=== PATIENT | male | born 1995 | race Hispanic/Latino ===

== ENCOUNTER → 2019-04-25 | Outpatient (CLI) | payer OTHER ==
--- NOTE | 2019-04-25 19:12 | REP ---
CHEST, TWO VIEWS: There is no evidence of acute infiltrate. No pleural effusion is seen. The heart is normal in size. The mediastinal silhouette is unremarkable. The visualized osseous structures are intact. IMPRESSION: No acute pulmonary disease. Electronically Signed by Andrea Ramos MD 04/26/2019 10:28 A
== END ==
LOC: M RAD 15:26
PROVIDERS: ATTEND Nurse Practitioner Family
DX: R06.00 Dyspnea, unspecified (principal)

== ENCOUNTER → 2019-05-10 | Outpatient (CLI) | payer OTHER ==
[~2019-05-10] MED LIST: METHACHOLINE KIT (J7674) INH ONE
--- NOTE | 2019-05-10 11:40 | PFTRPT ---
Height: 67.00 Inches Weight: 190.00 Lbs BSA: 1.98 Diagnosis: R05 DATE OF PROCEDURE: 05/10/2019 ORDERED BY: Evangelina Ramirez INTERPRETATION: Study of excellent technical quality. Under protocol, methacholine was administered. At a dose of 2.5 mg (13.875 CDUs), a 22%% decline in the FEV1 was noted. PC of 1.81 is significant. Flow rates did return to baseline post bronchodilator administration. IMPRESSION: Positive methacholine challenge study. MTDD
== END ==
LOC: M CARPUL 10:42
PROVIDERS: ATTEND Nurse Practitioner Family
DX: R05 Cough (principal)
CPT/HCPCS: 94070; J7674

== ENCOUNTER 2019-08-17 11:44 | Emergency (ER) | payer OTHER ==
[~2019-08-17] VITALS: Ht 172.7 cm; Wt 87.4 kg
[2019-08-17 11:44] VITALS: BP 145/67
[2019-08-17] MEDS ORDERED: dexameTHASONE 20MG/5ML VIAL (J1100 PER 1MG) IV ONE (12:45)
[2019-08-17] MEDS ORDERED: AMPICILLIN SOD/SULBACTAM SOD 3 GM in D5W MINI-BAG PLUS 100 ML IV ONE (12:45)
[2019-08-17 13:02] LABS: BASO # 0.1 10^3/uL (0.0-0.2); BASO % 0.4 % (0.0-1.0); HEMATOCRIT 44.8 % (42.0-52.0); HEMOGLOBIN 15.3 g/dl (13.5-17.5); LYMPH # 1.1 10^3/uL (1.5-5.0); LYMPH % 5.1 % (24.0-44.0); MEAN CORPUSCULAR HEMOGLOBIN 29.4 pg (27.0-33.0); MEAN CORPUSCULAR HGB CONC 34.2 g/dl (32.0-36.5); MONO # 1.9 10^3/uL (0.0-0.8); MONO % 8.6 % (0.0-5.0); NEUTROPHILS # 18.9 10^3/uL (1.5-8.5); NEUTROPHILS % 85.4 % (36.0-66.0); PLATELET COUNT, AUTOMATED 180 10^3/uL (150-450); RED BLOOD COUNT 5.21 10^6/uL (4.30-6.10); WHITE BLOOD COUNT 22.2 10^3/uL (4.0-10.0)
[2019-08-17] MEDS ORDERED: ISOVUE-370 76% 100ML VIAL As Ordered ONE (13:05)
[2019-08-17 13:33] LABS: ALT/SGPT 30 U/L (12-78); BILIRUBIN,DIRECT 0.2 MG/DL (0.0-0.2); BILIRUBIN,TOTAL 0.8 MG/DL (0.2-1.0); TOTAL PROTEIN 7.9 GM/DL (6.4-8.2)
[2019-08-17 13:41] LABS: MONO SCRN NEGATIVE (NEGATIVE)
[2019-08-17] MEDS ORDERED: ACETAMINOPHEN 325 MG TAB PO ONE (14:15)
[2019-08-17] MEDS ORDERED: PRED20TA PO (14:24)
[2019-08-17] MEDS ORDERED: AUGM875T28 PO (14:24)
--- NOTE | 2019-08-17 17:33 | REP ---
Soft-tissue neck CT study with IV contrast: History: Tonsillar swelling. Question abscess. Preliminary report is provided at the time of exam by Dr. Hernandez. CT contrast dose: 75 ml of intravenous Isovue 370. CT findings: Preliminary [employer] radiograph demonstrates prominent tonsillar and adenoidal soft tissues. The visualized intracranial structures are unremarkable on axial CT images. No intraorbital abnormality is seen. The paranasal sinuses are clear. The tonsils are hypertrophied bilaterally in a post one another in the midline. Mild adenoidal hypertrophy is seen. No tonsillar or peritonsillar abscess is seen. Submandibular and parotid glands are normal and symmetric. There are shoddy nonenlarged bilateral cervical lymph nodes. Impression: Tonsillar and adenoidal hypertrophy. No evidence of abscess. Electronically Signed by Steven Ferrell MD 08/17/2019 05:25 P
== END 2019-08-17 14:35 | disposition home or self-care (01) ==
LOC: M ED 11:44
DX: J03.90 Acute tonsillitis, unspecified (principal); F17.200 Nicotine dependence, unspecified, uncomplicated
CPT/HCPCS: 70491; 80047; 80076; 83605; 85025; 86140; 86308; 87040; 87880; 96361; 96374; 99284; J1100; Q9967

== ENCOUNTER 2019-12-23 00:11 | Emergency (ER) | payer OTHER ==
[~2019-12-23] VITALS: Ht 172.7 cm; Wt 90.9 kg
[~2019-12-23 00:11] MED LIST changes: +AUGM875T28 PO; -METHACHOLINE KIT (J7674) INH ONE; +PRED20TA PO
[2019-12-23] MEDS ORDERED: ISOVUE-370 76% 100ML VIAL As Ordered ONE (00:58)
[2019-12-23] MEDS ORDERED: MORPHINE 4 MG/ML 1ML VIAL/SYRINGE (J2270) IV ONE (01:00)
[2019-12-23 01:15] LABS: BASO # 0.1 10^3/uL (0.0-0.2); BASO % 0.5 % (0.0-1.0); EOS % 0.1 % (0.0-3.0); HEMOGLOBIN 15.5 g/dl (13.5-17.5); LYMPH # 1.6 10^3/uL (1.5-5.0); LYMPH % 11.4 % (24.0-44.0); MEAN CORPUSCULAR HEMOGLOBIN 28.9 pg (27.0-33.0); MEAN CORPUSCULAR VOLUME 87.5 fl (80.0-96.0); MONO # 0.7 10^3/uL (0.0-0.8); MONO % 5.3 % (0.0-5.0); NEUTROPHILS # 11.4 10^3/uL (1.5-8.5); PLATELET COUNT, AUTOMATED 238 10^3/uL (150-450); RED BLOOD COUNT 5.37 10^6/uL (4.30-6.10); WHITE BLOOD COUNT 13.9 10^3/uL (4.0-10.0)
[2019-12-23 01:37] LABS: ALBUMIN 4.2 GM/DL (3.2-5.2); ALT/SGPT 34 U/L (12-78); BILIRUBIN,DIRECT < 0.1 MG/DL (0.0-0.2); BILIRUBIN,TOTAL 0.3 MG/DL (0.2-1.0); TOTAL PROTEIN 7.9 GM/DL (6.4-8.2)
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
[2019-12-23 02:15] VITALS: BP 174/73
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
== END 2019-12-23 02:54 | disposition home or self-care (01) ==
LOC: M ED 00:11
DX: S20.219A Contusion of unspecified front wall of thorax, initial encounter (principal); S40.212A Abrasion of left shoulder, initial encounter; R10.812 Left upper quadrant abdominal tenderness; V47.0XXA Car driver injured in collision with fixed or stationary object in nontraffic accident, initial encounter; Y92.410 Unspecified street and highway as the place of occurrence of the external cause; Y93.9 Activity, unspecified; Y99.9 Unspecified external cause status; N20.0 Calculus of kidney; J45.909 Unspecified asthma, uncomplicated
CPT/HCPCS: 70450; 71260; 72125; 74177; 80047; 80076; 85025; 96374; 99284; J2270; Q9967

== ENCOUNTER 2020-06-21 13:36 | Emergency (ER) | payer OTHER ==
[~2020-06-21] VITALS: Ht 172.7 cm; Wt 97.7 kg
[2020-06-21 13:48] VITALS: BP 149/74
[2020-06-21] MEDS ORDERED: MORPHINE 10 MG/ML 1ML VIAL (J2270) IM ONE (13:55)
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
== END 2020-06-21 15:58 | disposition home or self-care (01) ==
LOC: M ED 13:36 → EDBD 13:36 → M ED 15:58
DX: S80.02XA Contusion of left knee, initial encounter (principal); V86.56XA Driver of dirt bike or motor/cross bike injured in nontraffic accident, initial encounter; Y92.9 Unspecified place or not applicable; Y93.9 Activity, unspecified; Y99.9 Unspecified external cause status
CPT/HCPCS: 73564; 73590; 73630; 96372; 99284; J2270

== ENCOUNTER → 2020-09-05 | Outpatient (REF) | payer OTHER ==
[2020-09-05 09:43] LABS: SEMEN APPEARANCE OPAQUE (OPAQUE); SEMEN VISCOSITY LIQUID (LIQUID); WBC CONCENTRATION <=1 M/ml (<=1 M/ml)
== END ==
LOC: M LAB REF 09:25
PROVIDERS: ATTEND Physician Assistant
DX: Z98.52 Vasectomy status (principal)